=== PATIENT | female | born 1975 | race Two or more races ===

== ENCOUNTER 2018-04-15 12:31 | Emergency (ER) | payer MEDICAID ==
[~2018-04-15] VITALS: Ht 157.5 cm; Wt 67.0 kg
[~2018-04-15 12:31] MED LIST: CLON-529 PO; CYCL-1 PO; FAMO40TA73 PO; ONDA4TAB12 PO
[2018-04-15 12:33] VITALS: BP 151/88
== END 2018-04-15 17:57 | disposition left against medical advice (07) ==
LOC: ER 12:31
DX: R07.9 Chest pain, unspecified (principal); Z53.21 Procedure and treatment not carried out due to patient leaving prior to being seen by health care provider
CPT/HCPCS: 93005

== ENCOUNTER 2018-09-18 04:37 | Emergency (ER) | payer MEDICAID ==
[~2018-09-18] VITALS: Ht 157.5 cm; Wt 68.0 kg
[2018-09-18] MEDS ORDERED: ketorolac trometh inj. 60 MG/2 ML VIAL IM ONE (05:25)
[2018-09-18] MEDS ORDERED: CYCL-1 PO (05:26)
[2018-09-18] MEDS ORDERED: DICL50TA8 PO (05:26)
[2018-09-18 05:56] VITALS: BP 141/88
== END 2018-09-18 05:57 | disposition home or self-care (01) ==
LOC: ER 04:40
DX: M54.42 Lumbago with sciatica, left side (principal); K21.9 Gastro-esophageal reflux disease without esophagitis; G89.29 Other chronic pain; Z87.442 Personal history of urinary calculi; Z79.899 Other long term (current) drug therapy
CPT/HCPCS: 96372; 99283; J1885

== ENCOUNTER 2020-09-13 17:46 | Emergency (ER) | payer MEDICAID ==
[~2020-09-13 17:46] MED LIST changes: +DICL50TA8 PO
== END 2020-09-13 19:53 | disposition left against medical advice (07) ==
LOC: ER 17:48
DX: Z53.21 Procedure and treatment not carried out due to patient leaving prior to being seen by health care provider (principal)
CPT/HCPCS: 93005